=== PATIENT | male | born 1985 | race Caucasian/White ===

== ENCOUNTER 2017-08-10 14:20 | Emergency (ER) | payer OTHER ==
[2017-08-10 14:29] VITALS: BP 138/87
[2017-08-10] MEDS ORDERED: DIPH/PERTUSS(ACELL)/TETANUS VAC/PF 0.5 ML SYR (>=10YO) IM ONE (14:44)
--- NOTE | 2017-08-10 14:48 | ER Document Report ---
HPI - HPI Patient complains to provider of: Left thigh laceration Onset: This afternoon Onset/Duration: Sudden Quality of pain: Achy Pain Level: 3 Context: Patient states that he was using a concrete saw to cut brick. Patient states the saw kicked back and hit his left thigh. Patient with laceration to left thigh. Patient states that he did initially cleanse the wound and applied dressing. 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 IN LAST 30 DAYS: No - HEENT HEENT: Atraumatic, Normocephalic - NECK Neck: Normal Inspection - RESPIRATORY Respiratory: No Respiratory Distress - MUSCULOSKELETAL/EXTREMETIES Musculoskeletal/Extremeties: MAEW - NEURO Level of Consciousness: Awake, Alert, Appropriate Motor/Sensory: No Motor Deficit - DERM Integumentary: Warm, Dry, Laceration - superficial lac to left thigh Course - Vital Signs Vital signs: Temp Pulse Resp BP Pulse Ox 99.2 F 109 H 16 138/87 H 98 08/10/17 14:28 08/10/17 14:28 08/10/17 14:28 08/10/17 14:28 08/10/17 14:28 Discharge - Discharge Clinical Impression: Abrasion of leg Qualifiers: Encounter type: initial encounter Laterality: left Qualified Code(s): S80.812A - Abrasion, left lower leg, initial encounter Condition: Stable Disposition: HOME, SELF-CARE Instructions: Dressing Instructions for Open Wounds ([facility]), Laceration Care ([facility] ), Tetanus Immunization Given ([facility]) Additional Instructions: Return immediately for any new or worsening symptoms Followup with your primary care provider, call tomorrow to make a followup appointment Referrals: [facility] [Provider Group] - Follow up as needed
== END 2017-08-10 15:11 | disposition home or self-care (01) ==
LOC: ER 14:20
DX: S70.312A Abrasion, left thigh, initial encounter (principal); W29.3XXA Contact with powered garden and outdoor hand tools and machinery, initial encounter; F17.200 Nicotine dependence, unspecified, uncomplicated; Z23 Encounter for immunization
CPT/HCPCS: 90471; 90715; 99282

== ENCOUNTER 2017-10-16 09:43 | Emergency (ER) | payer OTHER ==
[2017-10-16] MEDS ORDERED: IBUPROFEN 800 MG TABLET PO ONE (09:58)
--- NOTE | 2017-10-16 10:01 | ER Document Report ---
ED Extremity Problem, Lower - General Chief Complaint: Ankle Injury Stated Complaint: ANKLE INJURY Time Seen by Provider: 10/16/17 09:50 Mode of Arrival: Ambulatory Information source: Patient Notes: 32-year-old male presents to ED for complaint of right ankle pain. He states he fell off a ladder on Monday his ankle caught in the rungs on the way down and he landed on his back. He states the only thing that hurts is his right ankle. Patient is alert oriented respirations regular and unlabored speaks with full sentences but limps when he walks. TRAVEL OUTSIDE OF THE [place] IN LAST 30 DAYS: No - HPI Patient complains to provider of: Injury, Pain, Swelling Location: Ankle - Right Occurred: Other - Monday Where: Home, Outdoors Onset/Duration: Persistent Quality of pain: Sharp, Throbbing Severity: Moderate Pain Level: 3 Context: Fell, Twisted, Wearing shoes Recent injury: Yes Associated symptoms: Painful ambulation Exacerbated by: Hanging down, Movement, Walking Relieved by: Nothing - Related Data Allergies/Adverse Reactions: No Known Allergies Allergy (Verified 10/16/17 09:44) Past Medical History - General Information source: Patient - Social History Smoking Status: Current Every Day Smoker Cigarette use (# per day): Yes - Pack per day Chew tobacco use (# tins/day): No Smoking Education Provided: Yes - 4 minutes Frequency of alcohol use: Social - Weekly Drug Abuse: None Occupation: [employer] Family History: Reviewed & Not Pertinent Patient has suicidal ideation: No Patient has homicidal ideation: No - Past Medical History Cardiac Medical History: Reports: None Pulmonary Medical History: Reports: None EENT Medical History: Reports: None Neurological Medical History: Reports: None Endocrine Medical History: Reports: None Renal/ Medical History: Reports: None GI Medical History: Reports: None Musculoskeletal Medical History: Reports Hx Musculoskeletal Deformity, Reports Hx Musculoskeletal Trauma Skin Medical History: Reports None Psychiatric Medical History: Reports: Hx Anxiety, Hx Depression, Hx Post Traumatic Stress Disorder Traumatic Medical History: Reports: Hx Traumatic Brain Injury Infectious Medical History: Reports: None Surgical Hx: Negative Past Surgical History: Reports: None - Immunizations Immunizations up to date: Yes Hx Diphtheria, Pertussis, Tetanus Vaccination: Yes Review of Systems - Review of Systems Constitutional: No symptoms reported EENT: No symptoms reported Cardiovascular: No symptoms reported Respiratory: No symptoms reported Gastrointestinal: No symptoms reported Genitourinary: No symptoms reported Male Genitourinary: No symptoms reported Musculoskeletal: Ankle swelling - Pain and swelling to the right ankle Skin: No symptoms reported Hematologic/Lymphatic: No symptoms reported Neurological/Psychological: No symptoms reported -: Yes All other systems reviewed and negative Physical Exam - Vital signs Vitals: Temp Pulse Resp BP Pulse Ox 98.4 F 108 H 18 129/86 H 98 10/16/17 09:48 10/16/17 09:48 10/16/17 09:48 10/16/17 09:48 10/16/17 09:48 Interpretation: Normal - General General appearance: Appears well, Alert - HEENT Head: Normocephalic, Atraumatic Eyes: Normal Pupils: PERRL - Respiratory Respiratory status: No respiratory distress Chest status: Nontender Breath sounds: Normal Chest palpation: Normal - Cardiovascular Rhythm: Regular Heart sounds: Normal auscultation Murmur: No - Abdominal Inspection: Normal Distension: No distension Bowel sounds: Normal Tenderness: Nontender Organomegaly: No organomegaly - Back Back: Normal, Nontender - Extremities General upper extremity: Normal inspection, Nontender, Normal color, Normal ROM , Normal temperature General lower extremity: Normal temperature. No: Boby's sign Ankle: Tender, Ecchymosis, Edema, Limited ROM - To pain. No: Unable to bear weight - Limited due to pain - Neurological Neuro grossly intact: Yes Cognition: Normal Orientation: AAOx4 [place] Coma Scale Eye Opening: Spontaneous Yony Coma Scale Verbal: Oriented [place] Coma Scale Motor: Obeys Commands [place] Coma Scale Total: 15 Speech: Normal Motor strength normal: LUE, RUE, LLE, RLE Sensory: Normal - Psychological Associated symptoms: Normal affect, Normal mood - Skin Skin Temperature: Warm Skin Moisture: Dry Skin Color: Normal Course - Re-evaluation Re-evalutation: 10/16/17 22:48 Space was discussed with patient. Written report of x-rays given to patient. Patient was treated with posterior short leg splint and given crutches. Patient was instructed to follow-up with orthopedics for his distal fibular fracture. - Vital Signs Vital signs: Temp Pulse Resp BP Pulse Ox 98.2 F 84 18 132/87 H 98 10/16/17 11:22 10/16/17 11:22 10/16/17 11:22 10/16/17 11:22 10/16/17 11:22 - Diagnostic Test Radiology reviewed: Image reviewed, Reports reviewed Procedures - Immobilization Right Ankle Time completed: 11:30 Immobilizer type: Crutches, Short Leg Posterior Performed by: PCT Post-Proc Neuro Vasc Exam: Normal Alignment checked and good: Yes Discharge - Discharge Clinical Impression: Fracture of distal fibula Qualifiers: Encounter type: initial encounter Fracture type: closed Fracture morphology: unspecified fracture morphology Laterality: right Qualified Code(s): S82.831A - Other fracture of upper and lower end of right fibula, initial encounter for closed fracture Condition: Stable Disposition: HOME, SELF-CARE Additional Instructions: Fracture of Distal Fibula You have a fracture at the end of the fibula, the smaller bone in the lower leg. The fracture is across the bony bump on the outer side of the ankle. This fracture will usually heal well, but must be protected from the pull of ligaments and tendons at the ankle. If this fracture rotates out of position (or is felt likely to rotate), it must be operated on. Initially, the extremity should be kept elevated, with ice packs applied frequently. This fracture is usually treated with a cast or walking boot. If a walking boot has been selected, it's critical that it NOT be removed without the doctor's approval, not even for sleeping or baths. Healing of this fracture takes about four to eight weeks. Younger patients heal more quickly. An X-ray is usually required during healing to check for complications and to assess healing. Call the doctor or return at once if there is severe swelling, increasing pain, or numbness in the foot. SPLINT PRECAUTIONS: A splint has been placed. This will protect the area while healing begins. Your problem does NOT normally require a cast. It MUST, however, be held still! Keep the splint on ALL THE TIME until instructed to remove it by the doctor. As you begin to use the area, be careful. You shouldn't do anything which causes discomfort -- you may disturb the injury even with the splint in place. After the initial period of rest and elevation, if splint does not prevent pain when you move, come back. You may require placement of a different splint , or a cast. If there is unexpected severe pain, or numbness, discoloration, or swelling beyond the splint, you should return at once. If you feel that the splint has broken or become loose, come back. USE OF CRUTCHES: The doctor has recommended that you not bear weight at this time. You will need to use crutches. Adjust the crutches so the tops come to about two inches under the armpit while you are standing upright. Use your hands -- not your armpits -- to support your weight. To get into a chair, support yourself with one crutch on the injured side. Hold the chair with the other hand, then lower yourself while putting all your weight on the good leg. Going up stairs is `good leg up, step up, then bring up crutches and bad leg.' Down stairs is `bad leg and crutches down, then bring good leg down.' If you develop numbness or swelling in an arm or hand, you are using the crutches incorrectly. Return if you are having any problems with the crutches. ICE & ELEVATION: Apply ice packs frequently against the painful area. Many different schedules are recommended, such as "20 minutes on, 20 minutes off" or "one hour ice, two hours rest." If you need to work, you may need to go longer between ice treatments. You should plan to have the area ice packed AT LEAST one- fourth of the time. The ice should be applied over the wrap, tape, or splint, or over a layer of cloth -- not directly against the skin. Some ice bags have a built-in cloth and can be put directly on the skin. Your injured part should be elevated as much as possible over the next 48 hours. Try to keep the injury above the level of the heart. Avoid use of the injured area. Elevation and rest will decrease the swelling. USE OF HYZT-NRH-FNTPLIN IBUPROFEN: Ibuprofen (Advil, Nuprin, Medipren, Motrin IB) is a medication for fever and pain control. In addition, it has anti- inflammatory effects which may be beneficial, especially in the treatment of injuries. It's best to take ibuprofen with food. Persons with ulcer disease or allergy to aspirin should notify their physician of this before taking ibuprofen. Ibuprofen can be given every four to six hours, for a total of four doses daily. Age Pain or fever dose Antiinflammatory dose 6-8 yr 200 mg (1 tab) 200 mg (1 tab) 9-11 yr 200 mg (1 tab) 200-400 mg (1-2 tab) 11-14 yr 200-400 mg (1-2 tab) 400 mg (2 tab) 15-adult 400 mg (2 tab) 600 mg (3 tab) FOLLOW-UP CARE: If you have been referred to a physician for follow-up care, call the physician s office for an appointment as you were instructed or within the next two days. If you experience worsening or a significant change in your symptoms, notify the physician immediately or return to the Emergency Department at any time for re-evaluation. Prescriptions: Hydrocodone/Acetaminophen [[place] 5-325 mg Tablet] 1 tab PO Q6HP PRN #6 tablet PRN Reason: Ibuprofen 600 mg PO Q6HP PRN #20 tablet PRN Reason: Forms: Smoking Cessation Education, Elevated Blood Pressure Referrals: [facility] [Provider Group] - Follow up as needed
--- NOTE | 2017-10-16 10:35 | RADIOLOGY REPORT (SQ) ---
EXAM DESCRIPTION: ANKLE RIGHT COMPLETE COMPLETED DATE/TIME: 10/16/2017 10:21 am REASON FOR STUDY: foot caugh in ladder when he fell pain COMPARISON: None. NUMBER OF VIEWS: Three views. TECHNIQUE: AP, lateral, and oblique radiographic images acquired of the right ankle. LIMITATIONS: None. FINDINGS: MINERALIZATION: Normal. BONES: Slightly comminuted nondisplaced fracture distal tip of the fibula. JOINTS: No effusions. SOFT TISSUES: Soft tissue swelling. No foreign body. OTHER: No other significant finding. IMPRESSION: 1. Slightly comminuted nondisplaced fracture tip of the distal fibula. TECHNICAL DOCUMENTATION: JOB ID: [id number] [employer]- All Rights Reserved Reading location - IP/workstation name: [email or web address]
--- NOTE | 2017-10-16 10:39 | RADIOLOGY REPORT (SQ) ---
EXAM DESCRIPTION: FOOT RIGHT COMPLETE COMPLETED DATE/TIME: 10/16/2017 10:21 am REASON FOR STUDY: foot caugh in ladder when he fell pain COMPARISON: None. NUMBER OF VIEWS: Three views. TECHNIQUE: AP, lateral and oblique radiographic images acquired of the right foot. LIMITATIONS: None. FINDINGS: MINERALIZATION: Normal. BONES: No acute fracture or dislocation. No worrisome bone lesions. JOINTS: No effusions. SOFT TISSUES: No soft tissue swelling. No foreign body. OTHER: No other significant finding. IMPRESSION: NEGATIVE STUDY OF THE RIGHT FOOT. NO RADIOGRAPHIC EVIDENCE OF ACUTE INJURY. TECHNICAL DOCUMENTATION: JOB ID: [id number] [employer]- All Rights Reserved Reading location - IP/workstation name: [email or web address]
[2017-10-16 12:31] VITALS: BP 132/87
== END 2017-10-16 11:29 | disposition home or self-care (01) ==
LOC: ER 09:43
DX: S82.454A Nondisplaced comminuted fracture of shaft of right fibula, initial encounter for closed fracture (principal); W11.XXXA Fall on and from ladder, initial encounter; W23.1XXA Caught, crushed, jammed, or pinched between stationary objects, initial encounter; Y92.009 Unspecified place in unspecified non-institutional (private) residence as the place of occurrence of the external cause; F17.210 Nicotine dependence, cigarettes, uncomplicated; Z71.6 Tobacco abuse counseling
CPT/HCPCS: 99283; 99406

== ENCOUNTER 2018-11-16 16:45 | Emergency (ER) | payer OTHER ==
[2018-11-16 16:56] VITALS: BP 123/80
--- NOTE | 2018-11-16 17:13 | ER Document Report ---
ED Medical Screen (RME) - General Chief Complaint: Psych Problem Stated Complaint: PSYCH EVAL Time Seen by Provider: 11/16/18 17:11 Mode of Arrival: Ambulatory Information source: Patient Notes: Patient presents with significant other with a 2-day history of suicidal ideation. Patient states that he has come up with multiple plans. Patient states that he has been noncompliant with his medications due to the fact that he has this been 2 days each week in [facility] and then when he gets out of [facility] he is not always compliant with his medications as well. Patient has to do 2 days a week due to a DUI. Patient reports history of PTSD, TBI, depression, anxiety. Patient states that he had plans to swim into the ocean and never come back. 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 I have greeted and performed a rapid initial assessment of this patient. A comprehensive ED assessment and evaluation of the patient, analysis of test results and completion of the medical decision making process will be conducted by additional ED providers. TRAVEL OUTSIDE OF THE [place] IN LAST 30 DAYS: No - Related Data Allergies/Adverse Reactions: No Known Allergies Allergy (Verified 11/16/18 16:47) Past Medical History Renal/ Medical History: Denies: Hx Peritoneal Dialysis Musculoskeltal Medical History: Reports Hx Musculoskeletal Deformity, Reports Hx Musculoskeletal Trauma Psychiatric Medical History: Reports: Hx Anxiety, Hx Depression, Hx Post Traumatic Stress Disorder Traumatic Medical History: Reports: Hx Traumatic Brain Injury - Immunizations Immunizations up to date: Yes Hx Diphtheria, Pertussis, Tetanus Vaccination: Yes Physical Exam - Vital signs Vitals: Temp Pulse Resp BP Pulse Ox 97.9 F 98 14 123/80 97 11/16/18 16:54 11/16/18 16:54 11/16/18 16:54 11/16/18 16:54 11/16/18 16:54 - Psychological Associated symptoms: Depressed, Flat affect Course - Vital Signs Vital signs: Temp Pulse Resp BP Pulse Ox 97.9 F 98 14 123/80 97 11/16/18 16:54 11/16/18 16:54 11/16/18 16:54 11/16/18 16:54 11/16/18 16:54
[2018-11-16 17:59] LABS: ABSOLUTE BASOPHILS # (AUTO) 0.1 10^3/uL (0.0-0.2); ABSOLUTE EOSINOPHILS # (AUTO) 0.3 10^3/uL (0.0-0.6); ABSOLUTE LYMPHOCYTES (AUTO) 1.9 10^3/uL (0.5-4.7); ABSOLUTE MONOCYTES (AUTO) 0.3 10^3/uL (0.1-1.4); ABSOLUTE NEUT (AUTO) 2.9 10^3/uL (1.7-8.2); BASOPHILS % (AUTO) 1.1 % (0-2); EOSINOPHILS % (AUTO) 4.9 % (0-6); HEMATOCRIT 43.3 % (37.9-51.0); MEAN CORPUSCULAR HEMOGLOBIN 34.4 pg (27.0-33.4); MEAN CORPUSCULAR HGB CONC 34.6 g/dL (32.0-36.0); MEAN CORPUSCULAR VOLUME 99 fl (80-97); MONOCYTES % (AUTO) 6.1 % (3-13); PLATELET COUNT 304 10^3/uL (150-450); RED BLOOD COUNT 4.35 10^6/uL (4.35-5.55); SEGMENTED NEUTROPHILS % (AUTO) 52.9 % (42-78); TOTAL CELLS COUNTED % (AUTO) 100 %; WHITE BLOOD COUNT 5.5 10^3/uL (4.0-10.5)
[2018-11-16 18:19] LABS: ACETAMINOPHEN < 10 ug/mL (10-30); ALBUMIN 4.9 g/dL (3.5-5.0); ALCOHOL 225 mg/dL (NONE DETECTED); ALKALINE PHOSPHATASE 65 U/L (38-126); ANION GAP 13 (5-19); ASPARTATE AMINO TRANSFERASE 28 U/L (17-59); BILIRUBIN,DIRECT 0.3 mg/dL (0.0-0.4); BILIRUBIN,TOTAL 0.3 mg/dL (0.2-1.3); BLOOD UREA NITROGEN 3 mg/dL (7-20); CALCIUM 9.5 mg/dL (8.4-10.2); CARBON DIOXIDE 28 mmol/L (22-30); CHLORIDE 105 mmol/L (98-107); GLUCOSE 121 mg/dL (75-110); POTASSIUM 4.6 mmol/L (3.6-5.0); SALICYLATE < 1.0 mg/dL (2.0-20.0); TOTAL PROTEIN 7.5 g/dL (6.3-8.2)
--- NOTE | 2018-11-17 10:20 | EKG REPORT ---
SEVERITY:- NORMAL ECG - SINUS RHYTHM : Confirmed by: Jonathan Butler 17-Nov-2018 10:19:31
== END 2018-11-16 19:35 | disposition left against medical advice (07) ==
LOC: ER 16:45
DX: F29 Unspecified psychosis not due to a substance or known physiological condition (principal); R45.851 Suicidal ideations; F32.9 Major depressive disorder, single episode, unspecified
CPT/HCPCS: 36415; 80053; 80307; 85025; 93005; 93010; 99281

== ENCOUNTER 2019-11-19 23:18 | Emergency (ER) | payer OTHER ==
[2019-11-19] MEDS ORDERED: LORAZEPAM INJ 2 MG/1 ML VIAL IM ONE (23:42)
[2019-11-19] MEDS ORDERED: HALOPERIDOL LACTATE INJ 5 MG/1 ML VIAL IM ONE (23:49)
--- NOTE | 2019-11-19 23:49 | ER Document Report ---
ED Psych Disorder / Suicide - General Mode of Arrival: Ambulatory Information source: Law Enforcement Cannot obtain history due to: Intoxicated TRAVEL OUTSIDE OF THE [place] IN LAST 30 DAYS: No - HPI Patient complains to provider of: Aggression, Agitated, Suicidal plan Onset: This afternoon Onset was: Sudden Quality of pain: No pain Severity: None Pain Level: Denies Suicide Risk Factors: Loss of rational thought, Male <NEIDA MENA JR - Last Filed: 11/19/19 23:43> <OLLIE SHERWOOD - Last Filed: 11/20/19 16:14> <EDUARDO GRUBBS - Last Filed: 11/20/19 16:48> - General Chief Complaint: Psych Problem Stated Complaint: PSYCH EVAL Time Seen by Provider: 11/19/19 23:27 Primary Care Provider: [facility] [Outside] - Follow up as needed [facility] [Outside] - Follow up as needed [facility] [Primary Care Provider] - 11/21/19 3:00 pm (Follow up with Psychologist Dr. Ochoa ([facility]) tomorrow (11/21/2019) and sooner appointment with therapist Toshia Hoyos (she can do tomorrow 11/21/2019 or 11/02). ) Notes: 34-year-old male arrives by police escort with officer Rosalinda because of call out by Miracle Kaye who advised this patient is suicidal threatening to kill himself with a hand firearm as well as other weapons in the house. He is ex [employer]. Officer Rosalinda is also ex-[employer]. He has a good report with the patient. His Luisa is in room as well. Patient also placed a burn on his right antecubital area with a cigarette. A breathalyzer alcohol was 27.. I.e. to 70 mg/dL but will be checked with our labs. Patient was hesitant to take off his shirt and pants in front of female staff and therefore they exited so he can strip in front of all pressures per hours. Patient denies any homicidal ideation at this time. (NEIDA MENA JR) - Related Data Allergies/Adverse Reactions: No Known Allergies Allergy (Verified 11/16/18 16:47) Past Medical History - Social History Family History: Reviewed & Not Pertinent Renal/ Medical History: Denies: Hx Peritoneal Dialysis Musculoskeletal Medical History: Reports Hx Musculoskeletal Deformity, Reports Hx Musculoskeletal Trauma Psychiatric Medical History: Reports: Hx Anxiety, Hx Depression, Hx Post Traumatic Stress Disorder Traumatic Medical History: Reports: Hx Traumatic Brain Injury - Immunizations Immunizations up to date: Yes Hx Diphtheria, Pertussis, Tetanus Vaccination: Yes <NEIDA MENA JR - Last Filed: 11/19/19 23:43> - General Information source: Patient - Social History Smoking Status: Current Every Day Smoker Cigarette use (# per day): Yes - Half pack Chew tobacco use (# tins/day): No Smoking Education Provided: Yes <EDUARDO GRUBBS - Last Filed: 11/20/19 16:48> Physical Exam - Vital signs Interpretation: Hypertensive - HEENT Head: Normocephalic, Atraumatic Eyes: Normal Pupils: PERRL Pharynx: Normal Neck: Normal - Respiratory Respiratory status: No respiratory distress Chest status: Nontender Breath sounds: Normal Chest palpation: Normal - Cardiovascular Rhythm: Regular Heart sounds: Normal auscultation Murmur: No - Abdominal Inspection: Normal Distension: No distension Bowel sounds: Normal Tenderness: Nontender Organomegaly: No organomegaly - Rectal Prostate: Other - deferred - Genitourinary Scrotum: Other - deferred - Back Back: Normal - Extremities General upper extremity: Tender - right antecubital cigarrette self inflicted bu rn General lower extremity: Normal inspection <NEIDA MENA JR - Last Filed: 11/19/19 23:43> - Vital signs Vitals: Temp Pulse Resp BP Pulse Ox 98.0 F 88 20 144/86 H 97 11/19/19 23:28 11/19/19 23:28 11/19/19 23:28 11/19/19 23:28 11/19/19 23:28 Course - Laboratory Result Diagrams: 11/19/19 23:55 11/19/19 23:55 <OLLIE SHERWOOD - Last Filed: 11/20/19 16:14> - Laboratory Result Diagrams: 11/19/19 23:55 11/19/19 23:55 <EDUARDO GRUBBS - Last Filed: 11/20/19 16:48> - Re-evaluation Re-evalutation: 11/20/19 16:42 Ms. Alvin Grubbs physician field administrative assistant I inherited patient is my to follow today from the night time babysitter APC. Patient was brought in with suicidal ideation with possible plan of using a gun to kill himself. Also had extensive alcohol abuse. Patient is done well throughout his stay here today crisis has met with him and the have adjusted his psych meds. They are get him follow-up with addiction centers of [place] and patient is very happy about that. Patient's intent was to shoot himself with guns he has at home. Those have been removed from the house and taken away from his local area. At this time patient's vital signs have stabilized he has been very friendly and compliant with everything we have asked and I feel it is appropriate for him to be discharged into his discussed that he and they have appointment set up with people tomorrow for the detox center and the addiction centers. (EDUARDO GRUBBS) - Vital Signs Vital signs: Temp Pulse Resp BP Pulse Ox 97.7 F 81 17 97/55 L 95 11/20/19 09:13 11/20/19 09:13 11/20/19 09:13 11/20/19 09:13 11/20/19 09:13 - Laboratory Laboratory results interpreted by me: 11/19/19 11/19/19 23:55 23:55 MCH 34.3 H RDW 14.2 H Sodium 147.7 H Total Protein 9.1 H Albumin 5.8 H Salicylates < 1.0 L Acetaminophen < 10 L Discharge <NEIDA MENA JR - Last Filed: 11/19/19 23:43> <OLLIE SHERWOOD - Last Filed: 11/20/19 16:14> <EDUARDO GRUBBS - Last Filed: 11/20/19 16:48> - Discharge Clinical Impression: Alcohol abuse, Alcohol intoxication, Suicidal ideation Condition: Stable Disposition: HOME, SELF-CARE Additional Instructions: You have been evaluated by both medical and behavioral health teams for alcohol intoxication with use disorder severe, Post Traumatic Stress Disorder and Traumatic Brain Injury history, and suicidal ideation. You have been deemed appropriate for discharge. While in the emergency department you received the following services/or had access to: Medical screening and assessment, nursing services, dietary services, pharmacological services, one-on-one counseling and/or psychotherapy, environmental services, and continuous observation by a patient aviation safety officer. You should continue home medications with the two following changes: Decrease Prozac to 60MG daily for depression Add Zyprexa 2.5MG twice a day for mood stabilization/impulse control (These two medication are known as Symbyax and work well together) CHRONIC ALCOHOLISM and ALCOHOL ABUSE: (Alcohol is depressant so can increase depression and suicidal ideation) Your evaluation reveals evidence of chronic alcoholism, an addiction to alcohol. The tendency to alcoholism may be inherited. Chronic use of alcohol weakens muscles, causes fatty deposits in the liver, damages the stomach, makes you more prone to infections, and can cause defects in unborn children. In the long run, brain atrophy and cirrhosis of the liver result. You are also at greater risk for certain types of cancer, such as cancer of the mouth, throat, stomach, and liver. Counselling services are available to help you. In-hospital treatment programs often help. Support groups such as Alcoholics Anonymous can be very useful in beating this addiction. Your physician can make a referral for you. As alcoholics often are prone to other addictions, you should discuss your use of any other medications with the doctor. ALCOHOL WITHDRAWAL: (concern for if your abruptly abstain) Your symptoms are caused by alcohol withdrawal. After a period of frequent drinking, the brain and body are changed by the alcohol. When you quit or reduce your drinking, the nervous system becomes unstable. Withdrawal symptoms can start a few hours after your last drink, but sometimes don't begin until a couple of days later. Symptoms can include shakiness, sweating, insomnia, nausea, vomiting, fearfulness, hallucinations, and seizures. In addition to the acute effects of alcohol withdrawal, we often have to deal with the medical effects of alcoholism. These problems often include dehydration, stomach irritation, intestinal bleeding, low blood sugar, liver disease, and pancreas inflammation. Treatment for alcohol withdrawal includes mild sedatives, vitamins, and fluids. You need to be with someone who can help if symptoms become severe. Many patients can withdraw at home. Admission to the hospital or a detox facility may be necessary if withdrawal symptoms are severe and uncontrollable. Abstaining from alcohol is the only effective long-term treatment. If you start drinking again, you will not be able to control yourself after the first drink. Treatment programs are available. In addition, many alcoholics benefit from Alcoholics Anonymous or other support groups available through your counselor or jainism crime data specialist. AL-ANOAbdiel and MANOHAR-TEEN are support groups for friends and family members of an alcoholic. Go to the emergency room if you develop persistent vomiting, severe abdominal pain, fever, shortness of breath, hallucinations, uncontrollable tremors, or seizures. DEPRESSION: Your evaluation reveals that you have mental depression. While symptoms may be vague, they often include disturbance of sleep, fatigue, loss of appetite, and general loss of interest in life. While depression may be a side effect of drugs, or a reaction to a major change in your life, many cases have no known cause. If depression is acute, and related to a major loss in your life, you can e xpect it to clear completely with time. If you have been depressed a long time, are prone to repeated bouts of depression or low mood, or have been thinking of suicide, get help. Depression can be treated with anti-depressant medication and counselling. Long-term depression will often take a few weeks to clear, even with appropriate medication. Follow-up care is important. SUICIDAL IDEATION: Suicidal ideation is a common medical term for thoughts about suicide, which may be as detailed as a formulated plan, without the suicidal act itself. Although most people who undergo suicidal ideation do not commit suicide, some go on to make suicide attempts. The range of suicidal ideation varies greatly from fleeting to detailed planning, role playing, and unsuccessful attempts. While thoughts about suicide are common, most people do not carry out serious actions to commit suicide. Based upon your evaluation and discussion with you, we do not believe you are currently at risk to act upon your thoughts of suicide. You have agreed to return to the Emergency Department, at any time, if you feel inclined to act upon your suicidal thoughts. FOLLOW-UP CARE: You have a follow up appointment with Psychologist Dr. Ochoa ([facility]) tomorrow (11/21/2019). She is to call you around 1500. Your next appointment with substance abuse therapist Toshia Hoyos is next (11/28/2019) but she said she could have a session with your tomorrow (11/21/2019) or Monday (11/22/2019). You are encouraged to see her sooner. Coordinated with the local 's Affairs office (Nurse Chu, Toshia Hoyos therapist) and [facility] (Kiara) for voluntary alcohol detoxification/rehabilitation/dual diagnosis mental health and substance abuse inpatient treatment. They will continue to be involved to try to get you to one of their facilities. While waiting you are recommended to continue outpatient follow up with the local [facility]. You have been provided local crisis numbers and the [facility] crisis line number for additional supports. If you experience worsening or a significant change in your symptoms notify your physician immediately, utilize mobile crisis or return to the Emergency Department at any time for re- evaluation. Prescriptions: Olanzapine [Zyprexa 2.5 Mg Tablet] 2.5 mg PO BID #40 tablet Forms: Elevated Blood Pressure, Smoking Cessation Education Referrals: [facility] [Outside] - Follow up as needed [facility] [Outside] - [facility] up as needed [facility] - 11/21/19 3:00 pm (Follow up with Psychologist Dr. Ochoa ([facility]) tomorrow (11/21/2019) and sooner appointment with therapist Toshia Hoyos (she can do tomorrow 11/21/2019 or Monday11/22/2019). )
[2019-11-20 00:35] LABS: ABSOLUTE BASOPHILS # (AUTO) 0.1 10^3/uL (0.0-0.2); ABSOLUTE EOSINOPHILS # (AUTO) 0.4 10^3/uL (0.0-0.6); ABSOLUTE LYMPHOCYTES (AUTO) 2.3 10^3/uL (0.5-4.7); ABSOLUTE MONOCYTES (AUTO) 0.6 10^3/uL (0.1-1.4); ABSOLUTE NEUT (AUTO) 4.4 10^3/uL (1.7-8.2); BASOPHILS % (AUTO) 1.3 % (0-2); EOSINOPHILS % (AUTO) 4.5 % (0-6); HEMATOCRIT 47.9 % (37.9-51.0); HEMOGLOBIN 16.9 g/dL (13.5-17.0); LYMPHOCYTES % (AUTO) 30.2 % (13-45); MEAN CORPUSCULAR HEMOGLOBIN 34.3 pg (27.0-33.4); MEAN CORPUSCULAR HGB CONC 35.3 g/dL (32.0-36.0); MEAN CORPUSCULAR VOLUME 97 fl (80-97); MONOCYTES % (AUTO) 7.2 % (3-13); PLATELET COUNT 384 10^3/uL (150-450); RED BLOOD COUNT 4.93 10^6/uL (4.35-5.55); RED CELL DISTRIBUTION WIDTH 14.2 % (11.5-14.0); SEGMENTED NEUTROPHILS % (AUTO) 56.8 % (42-78); TOTAL CELLS COUNTED % (AUTO) 100 %; WHITE BLOOD COUNT 7.7 10^3/uL (4.0-10.5)
[2019-11-20 00:52] LABS: ALBUMIN 5.8 g/dL (3.5-5.0); ALCOHOL 263 mg/dL (NONE DETECTED); ALKALINE PHOSPHATASE 86 U/L (38-126); ANION GAP 17 (5-19); ASPARTATE AMINO TRANSFERASE 29 U/L (17-59); BILIRUBIN,DIRECT 0.2 mg/dL (0.0-0.4); BILIRUBIN,TOTAL 0.6 mg/dL (0.2-1.3); BLOOD UREA NITROGEN 7 mg/dL (7-20); CALCIUM 9.9 mg/dL (8.4-10.2); CARBON DIOXIDE 27 mmol/L (22-30); CHLORIDE 104 mmol/L (98-107); GLUCOSE 101 mg/dL (75-110); POTASSIUM 4.6 mmol/L (3.6-5.0); TOTAL PROTEIN 9.1 g/dL (6.3-8.2)
[2019-11-20 00:56] LABS: ACETAMINOPHEN < 10 ug/mL (10-30); APPEARANCE,URINE CLEAR; BILIRUBIN,URINE NEGATIVE (NEGATIVE); COLOR,URINE COLORLESS; GLUCOSE, URINE NEGATIVE (NEGATIVE); KETONES,URINE NEGATIVE (NEGATIVE); LEUKOCYTE ESTERASE,URINE NEGATIVE (NEGATIVE); NITRITE,URINE NEGATIVE (NEGATIVE); PROTEIN,URINE NEGATIVE (NEGATIVE); SALICYLATE < 1.0 mg/dL (2.0-20.0); URINE SPECIFIC GRAVITY 1.003; UROBILINOGEN,URINE NEGATIVE mg/dL (<2.0)
[2019-11-20 01:46] LABS: URINE AMPHETAMINES SCREEN NEGATIVE; URINE BARBITURATES SCREEN NEGATIVE; URINE BENZODIAZEPINES SCREEN NEGATIVE; URINE COCAINE SCREEN NEGATIVE; URINE MARIJUANA (THC) SCREEN NEGATIVE; URINE METHADONE SCREEN NEGATIVE; URINE PHENCYCLIDINE SCREEN NEGATIVE
--- NOTE | 2019-11-20 08:35 | EKG REPORT ---
SEVERITY:- NORMAL ECG - SINUS RHYTHM : Confirmed by: Jonathan Butler 20-Nov-2019 08:33:55
[2019-11-20 17:16] VITALS: BP 110/76
--- NOTE | 2019-11-21 16:58 | PSYCHOLOGICAL NOTE ---
Psych Note - Psych Note Date seen by psych provider: 11/20/19 Time seen by psych provider: 11:40 - Evaluation with patient from [id number]. Discussion with Kiara from [facility] from [id number] and ongoing. collateral from [id number]. Collateral from Kimberley at local [place] [facility] from [phone]. Coordination with [place] therapist Toshia Hoyos at 1334. Psych Note: Patient is a 34 year old male who presented to the Emergency Department late last evening via [facility] and [facility] voluntarily for suicidal ideation with plan to shoot self and access to firearms, had cigarette burn garsia to arms, alcohol intoxication (Serum Alcohol Level was 263 upon arrival to the ED), and legal issues. He was subsequently put on a 24 Hour Petition for Evaluation. Patient reported he was still interested in voluntary detoxification/rehabil itation via [facility]. He gave verbal consent to provide them with a referral packet so did so. He denied current suicidal and homicidal ideation. He commented "not right now." He admitted these thoughts worsen when he has been drinking but stated "not sure of triggered by other things." He denied having access to firearms at home. He identified he went to a 10 month program via [place] in [place] last year into this year. He acknowledged he was [facility] this [facility] and takes his medications as prescribed. He reported medications of Prozac 80MG, Gabapentin 1800MG, Methocarbamol 1000MG, Melatonin 10MG and Seroquel half a tab (said 6.5MG during the day). Patient was alert and oriented to self, person, place, time and situation. Mood was euthymic with congruent affect. He denied current suicidal and homicidal ideation. Patient did not appear to be responding to internal stimuli as evidenced by fair eye contact and answering questions appropriately when addressed. Thought processes were linear and organized. Conversational speech was within normal limits for rate, tone and prosody. Intellectual abilities are estimated to be average. Insight, judgment and impulse control were fair as evidenced by still wanting treatment. From [id number] spoke to Kiara from [facility]. She stated they were working on the placement when they found out patient's is not active and he has been ineligible since 2017. She stated they can still utilize the [facility] but patient has to request a consult from his VA Provider first for authorization. Later in the day she provided VA contact number of [phone] ext [phone] or [phone]. She was made aware local VA provider was utilized and spoke to patient via telephone in order to put consult in right away. From [phone] obtained collateral from patient's Luisa ([phone]). Patient gave verbal consent to speak and coordinate with his . She francis ntified she removed all firearms and weapons, neighbor has then, and patient won't even be aware who has them. Spoke to again at 1630 for final planning and for her to provide transportation home. From [phone] spoke with local [facility] Nurse Kimberley for care coordination and collateral. She identified patient sees Dr. Garcia, was supposed to have psychologist Dr. Ochoa appointment this morning, and is in the [facility] program where he sees Toshia Hoyos for therapy. She reached out to Toshia Hoyos who called to the hospital herself to assist in coordination. She also was able to arrange follow up with psychologist Dr. Ochoa for tomorrow (11/21/2019) with the doctor calling patient directly by 1500. At 1334 [facility] therapist Toshia Hoyos called. Discussed the need for consult ordered to obtain authorization for [facility] (At [place], [place]). She stated she would need to speak to patient directly first and was allotted that time to do so. She reported next appointment with her is next bit she could see him tomorrow (11/21/2019) or Monday (11/22/2019). Per patient they scheduled therapy follow up tomorrow (11/21/2019) at 1300. She stated [facility] takes a little bit of time on VA side, she just had another individual do the same, it took a month before VA approved but it did happen. Chart review revealed patient was seen in the Emergency Department 11/16/2018 for suicidal ideation (plan to swim into ocean and not come back. It was noted diagnoses of PTSD, TBI, Depression and Anxiety. Also noted was patient being in outpatient [facility] treatment since 2017. He had at the time been accepted to a dual diagnosis program in [place], [place]. Also noted was ongoing issues with substance abuse and alcohol. Clinical Presentation: Alcohol Intoxication with Use Disorder Severe Suicidal Ideation with plan to shoot self/access/means- reported she removed firearms and weapons/gave to neighbor History of TBI History of PTSD Medication recommendations made by the psychiatric medication provider Dr. Gm ELIZABETH., includes: Continue home medications except: Decrease Prozac to 60MG daily for depression Add Zyprexa 2.5MG twice a day for mood stabilization/impulse control Impression/Plan: Patient is cleared from acute psychiatric services. Recommendation to RESCIND 24 Hour Petition for Evaluation. He denied current suicidal and homicidal ideation. He has had time to sober up from alcohol intoxication. stated she removed all firearms and weapons, neighbor had them, and patient will not know. [facility] made initial linkage to [facility]. [facility] coordinated with [facility] and the local [facility]. Patient had phone call with [place] [facility] therapist Toshia Hoyos so she could put consult in for VA authorization to [facility] and scheduled therapy follow up with her for tomorrow (11/21/2019) at 1300. Coordinated with local [facility] to get psychologist Dr. Ochoa appointment he was supposed to have this morning rescheduled for tomorrow (11/21/2019) with the doctor calling him by 1500. Made medication adjustments to try to help manage mood and impulse control. Provided patient and with the outpatient mental health resource sheet that listed [facility] Crisis numbers, noted appointments for tomorrow (11/21/2019), and included a brochure for [facility]. Recommended patient follow up with his VA providers closely as he is waiting to get treatment from [facility]. Consulted with Dr. Grissom regarding the management and care of patient. ED Physician in agreement with recommendations.
== END 2019-11-20 17:17 | disposition home or self-care (01) ==
LOC: ER 23:18
DX: R45.851 Suicidal ideations (principal); F10.129 Alcohol abuse with intoxication, unspecified; R45.1 Restlessness and agitation; F17.210 Nicotine dependence, cigarettes, uncomplicated; I10 Essential (primary) hypertension
CPT/HCPCS: 93005; 99284; 96372; 36415; 80307 ×4; 85025; 80053; 81001; 93010; J1630; J2060